=== PATIENT | male | born 1945 | race Caucasian/White ===

== ENCOUNTER → 2019-01-01 07:34 | Outpatient (CLI) | payer MEDICARE, SELFPAY ==
--- NOTE | 2019-01-01 | DI.RAD.S_ITS ---
PROCEDURE: FL UPPER GI W AIR INDICATIONS: DYSPHAGIA/GERD COMPARISON: None. FINDINGS: KUB: Preprocedural increment manager film demonstrates a normal bowel gas pattern. No suspicious abdominal calcifications. Visualized solid organ contours appear normal. Bony structures appear unremarkable. Esophagus: Esophageal mucosa is normal on air-contrast views. On single-contrast views, there is normal esophageal peristalsis superiorly but over the distal two thirds of the esophagus episodic tertiary contractions were observed. No strictures, extrinsic mass effects, or diverticula. There is a small sliding hiatal hernia and mild to moderate episodic spontaneous and elicited gastroesophageal reflux. Stomach: The stomach is normally distensible, with normal rugal fold thickness. No mucosal masses or ulcers. Pylorus and duodenal bulb appear normal in morphology. Duodenal folds are normal in thickness as well. IMPRESSION: There is a small sliding hiatal hernia with associated mild to moderate episodic spontaneous and elicited gastroesophageal reflux extending to the junction of the upper and middle thirds of the esophagus. This is not associated with a finding of esophageal mass or stricture, and was associated with the finding of episodic tertiary contractions within the distal two thirds of the esophagus. Mild esophagitis is likely present, and esophageal spasm may explain the episodic reports of esophageal obstruction. Dictated by: Michael Anthony M.D. on 01/01/2019 at 9:03 Approved by: Michael Anthony M.D. on 01/01/2019 at 9:06
== END ==
PROVIDERS: PCP Family Medicine; Visit Provider Family Medicine
DX: R13.10 Dysphagia, unspecified (principal); K21.9 Gastro-esophageal reflux disease without esophagitis; K44.9 Diaphragmatic hernia without obstruction or gangrene
CPT/HCPCS: 74247

== ENCOUNTER 2019-03-06 13:51 | Day surgery (SDC) | payer MEDICARE, SELFPAY ==
--- NOTE | 2019-03-06 | PATH_ITS ---
[facility] Accession Number: [id number] . 01 Material submitted: . PART A: colon - RIGHT COLON POLYP PART B: rectosigmoid junction - RECTOSIGMOID JUNCTION POLYP . 01 Clinical history: . A: COLON POLYP BIOPSY IN RIGHT COLON . 02 Diagnosis: A. Right Colon, Polyp, Biopsy: Tubular adenoma. . B. Rectosigmoid Junction, Polyp, Biopsy: Hyperplastic polyp. MRV/03/08/2019 . 02 Electronically signed: . Livier Hatch MD, Pathologist NPI- [id number] . 01 Gross description: . (A) Received in formalin, labeled colon biopsy right colon, are three fragments of costello tissue (0.7 x 0.2 x 0.2 cm in aggregate). Entirely submitted in cassette A1. (B) Received in formalin, labeled rectosigmoid junction polyp, are three fragments of rendon-costello tissue (0.4 x 0.3 x 0.1 cm in aggregate. Entirely submitted in cassette B1. ([id number]) /MRV . 02 Pathologist provided ICD-10: D12.6 . 02 CPT . 766238, [id number] Performed at: 01 [facility] [address], [place], [place] [id number] MD Ralph Luna MD Phone: [phone] Performed at: 02 [facility] [address] [place], [place] [id number] MD Livier Hatch MD Phone: [phone]
[2019-03-06 14:19] VITALS: BP 139/88; PULSE 86; RESP 15; TEMP 36.4; O2SAT 97
[2019-03-06 14:23] VITALS: BMI 28.3
[2019-03-06] MEDS: SODIUM CHLORIDE 0.9% 1,000 ML 200 ML IV (14:33)
--- NOTE | 2019-03-06 15:53 | PM.HP.1 ---
History of Present Illness Date Patient Seen: 03/06/19 Time Patient Seen: 15:53 Chief complaint: [id number] Narrative: 74-year-old man presents 5 years after last screening colonoscopy for screening colonoscopy. Personal history of colon polyps. No family history of colon or rectal cancers, no intestinal complaints Tolerated prep well Meds Home Medications Medication Instructions Recorded Confirmed Type atorvastatin [Lipitor] 5 mg PO HS #0 11/10/16 03/06/19 History terazosin 1 mg PO DAILY #0 11/10/16 03/06/19 History zolpidem 2.5 mg PO DAILY #0 11/10/16 03/06/19 History multivitamin with minerals 1 tab PO DAILY 03/06/19 03/06/19 History [Multiple Vitamin-Minerals] Review of Systems Constitutional Constitutional: Denies fever(s) Eyes Eyes: Denies bulging eyes ENT Ears, Nose, Mouth, and Throat: No lip swelling Cardiovascular Cardiovascular: Denies generalize swelling Respiratory Respiratory: Denies stridor Gastrointestinal Gastrointestinal: Denies coffee ground emesis Musculoskeletal Musculoskeletal: Denies loss of height Integumentary/Breasts Skin/Breast: Denies wounds Neurologic Neurologic: Denies abnormal speech and Denies confusion Psychiatric Psychiatric: Denies confusion Endocrine Endocrine: Denies deepening of the voice Hematologic/Lymphatic Hematologic/Lymphatic: Denies lymphadenopathy Allergic/Immunologic Allergic/Immunologic: Denies lip swelling Exam Vital Signs (past 8 hours): - 03/06/19 14:19 Temperature 97.6 F Pulse Rate 86 Respiratory Rate 15 Blood Pressure 139/88 Pulse Oximetry 97 Oxygen Delivery Method Room Air Const General: cooperative and healthy appearing Orientation: alert HENMT Head: normal to inspection Nose: nares normal Mouth: oral mucosae normal and lip normal Eyes Eyelids: eyelids normal Conjunctivae: conjunctivae normal Sclera: sclerae normal Neck Neck: supple and other (No thyromegally) Chest Chest: other (LCTAB , regular respiratory effort) Cardio Rhythm: regular rhythm Heart Sounds: S1 normal, S2 normal, no gallops, no murmurs and no rubs GI Other: Abdomen soft nontender nondistended Skin General: no rashes or lesions noted Neuro General: alert and awake Psych Appearance: grossly normal Affect: normal affect Assessment & Plan Assessment & Plan narrative: 74-year-old man presents for regular screening colonoscopy Risks and benefits of the procedure including , perforation, hypoxia, missed lesion all discussed All questions answered
[2019-03-06] MEDS: diphenhydrAMINE 50 MG/ML VIAL IV (16:01)
[2019-03-06] MEDS: MIDAZOLAM 5 MG/5 ML VIAL IV (16:09)
[2019-03-06] MEDS: fentaNYL 250 MCG/5 ML INJ IV (16:11)
[2019-03-06 16:33] VITALS: BP 141/87; PULSE 80; RESP 13; TEMP 36.9; O2SAT 97
--- NOTE | 2019-03-06 16:36 | P.OP.ENDO_ITS ---
Operative Date/Time/Diagnoses Date of procedure: 03/06/19 Time of procedure: 16:28 Pre-op diagnosis: Screening colonoscopy Post-op diagnosis: same Procedure & Clinicians Study performed: Complete screening colonoscopy Cold biopsy forcep polypectomy x2 -right colon, rectosigmoid junction Same procedure as scheduled: Yes Indications: 74-year-old man 5 years status post most recent screening colonoscopy, history of colon polyps Surgeon: Freeman Hester Procedure Notes SCOAP/Timeout: completed Procedure in detail: Patient was taken to the endoscopy suite, a time-out was completed he was sedated with a total of 50 mg of IV diphenhydramine, 4 mg of midazolam, 75 mcg of fentanyl over the entire course of the procedure. A digital rectal exam was performed. No lesions identified prostate soft. 160 cm colonoscope was introduced through the anus and advanced through the curves in folds of the colon until the cecum was reached. The ileocecal valve was identified as was the appendiceal orifice and gross foot. The terminal ileum was intubated. There were no lesions within the small intestine with the villous mucosa appearing healthy. The scope was then slowly withdrawn. A small sessile polyp was identified on the right colon which was removed with biopsy forcep. Continue to withdrawal the scope at the level of the sigmoid colon there was moderate diverticular disease without evidence of active inflammation. A small polyp was identified at the rectosigmoid junction this was also removed with cold biopsy forceps. The scope was then withdrawn into the rectum there were no rectal lesions. Scope was retroflexed next within the distal rectum - note lesions identified. Patient tolerated the procedure well Prep adequate Scope withdrawal time: 16 Sedation minutes: 29 Findings: diverticulosis and polyp Specimen(s): other (Right colons polyp, rectosigmoid junction polyp) Complications: none Impression: 1. Moderate sigmoid diverticulosis 2. Right colon and rectosigmoid junction small sessile polyps status post polypectomies Recommendations: Colonscopy in 5 years Plan for aftercare: PACU and then home Follow up: as needed Disposition: PACU
[2019-03-06 16:38] VITALS: BP 137/82; PULSE 79; RESP 12; O2SAT 97
[2019-03-06 16:43] VITALS: BP 112/74; PULSE 73; RESP 13; O2SAT 97
[2019-03-06 16:48] VITALS: BP 117/70; PULSE 74; RESP 15; O2SAT 95
[2019-03-06 16:56] VITALS: BP 114/69; PULSE 74; RESP 14; TEMP 37; O2SAT 97
== END 2019-03-06 17:14 | disposition home or self-care (01) ==
PROVIDERS: PCP Family Medicine; Visit Provider Surgery
PROC: 0DJD8ZZ Inspection of Lower Intestinal Tract, Via Natural or Artificial Opening Endoscopic (ICD-10-PCS; CPT 45378; principal; 2019-03-06 15:15)
DX: Z86.010 Personal history of colon polyps (principal); D12.6 Benign neoplasm of colon, unspecified; K57.30 Diverticulosis of large intestine without perforation or abscess without bleeding
CPT/HCPCS: 45380; 88305; 99152; 99153; J1200; J2250; J3010